=== PATIENT | male | born 1970 | race Caucasian/White ===

== ENCOUNTER 2018-12-12 18:40 | Emergency (ER) | payer OTHER ==
[2018-12-12] MEDS ORDERED: FENTANYL CITR 100 MCG/2 ML ONE (19:35)
[2018-12-12] MEDS ORDERED: NA CHLORIDE 0.9% 1,000 ML ONE (19:35)
[2018-12-12 19:56] LABS: Absolute Lymphocytes (CBC) 1.7 K/uL (0.7-4.9); Absolute Monocytes 0.5 K/uL (0.1-1.3); Absolute Neutrophil 3.4 K/uL (1.8-8.0); Basophils % 0.9 % (0-1.3); Eosinophils % 1.3 % (0-4.4); Hematocrit 45.1 % (39.6-49.0); Lymphocytes % 29.8 % (15.3-44.8); MPV 10.1 fL (7.6-11.3); Monocytes % 8.8 % (3.3-12.3); RBC Red Blood Cell Count 4.94 M/uL (4.33-5.43)
[2018-12-12 20:17] LABS: Urine Blood NEGATIVE (NEG); Urine Glucose NEGATIVE (NEG); Urine Protein NEGATIVE (NEG); Urine Specific Gravity 1.015 (1.005-1.030)
[2018-12-12 20:20] LABS: ALT/SGPT 48 U/L (12-78); AST/SGOT 23 U/L (15-37); Albumin 4.4 g/dL (3.4-5.0); Alkaline Phosphatase 82 U/L (45-117); BUN Blood Urea Nitrogen 11 mg/dL (7-18); Bicarbonate 29 mmol/L (21-32); Bilirubin Direct 0.1 mg/dL (0-0.2); Bilirubin Total 0.4 mg/dL (0.2-1.0); Glucose Level 105 mg/dL (74-106); Lipase 128 U/L (73-393); Potassium 4.4 mmol/L (3.5-5.1); Protein, Total 7.4 g/dL (6.4-8.2); Sodium Level 141 mmol/L (136-145)
--- NOTE | 2018-12-12 21:07 | RAD REPORT ---
EXAM DESCRIPTION: US - Scrotum Testicles - 12/12/2018 8:58 pm CLINICAL HISTORY: Testicular pain COMPARISON: None FINDINGS: Right testicle measures 4.5 x 2.5 x 2.9 centimeters. Echotexture is homogeneous. Normal bl ood flow Left testicle measures 4.4 x 2.3 x 2.6 centimeters. Echotexture is homogeneous. Normal blood flow The epididymides are normal in size and echotexture. Normal blood flow is seen. IMPRESSION: Unremarkable exam
[2018-12-12] MEDS ORDERED: MAGNESIUM CITRATE 300 ML BOT ONE (21:35)
--- NOTE | 2018-12-12 22:09 | ER ---
Nurse's Notes [facility] Name: Harjinder Cooper Age: 47 yrs Sex: Male : 1970 Arrival Date: 12/12/2018 Time: 18:41 Bed 18 Private MD: out of town, doctor Diagnosis: Lower abdominal pain, unspecified;Constipation Presentation: 12/12 18:45 Presenting complaint: states: intermittent sharp lower abd pain that radiates to sv groin x 1 day, chills. Denies n/v/d. Pt was recently admitted and d/c'd for viral enteritis. Had OP CTA \T\ US done, results called as cyst on appendix and small patchy areas on his lungs. BMs have been soft since. Transition of care: patient was not received from another setting of care. Onset of symptoms was December 11, 2018. Care prior to arrival: None. 18:45 Method Of Arrival: Ambulatory sv 18:45 Acuity: AYO 3 sv 19:30 Risk Assessment: Do you want to hurt yourself or someone else? Patient reports no ea desire to harm self or others. Initial Sepsis Screen: Does the patient meet any 2 criteria? No. Patient's initial sepsis screen is negative. Does the patient have a suspected source of infection? No. Patient's initial sepsis screen is negative. Historical: - Allergies: 18:55 Benadryl; sv - PMHx: 18:55 None; sv - PSHx: 18:55 None; sv - Immunization history:: Adult Immunizations up to date. - Social history:: Smoking status: Patient/guardian denies using tobacco. - Ebola Screening: : No symptoms or risks identified at this time. Screenin:30 Abuse screen: Denies threats or abuse. Nutritional screening: No deficits noted. ea Tuberculosis screening: No symptoms or risk factors identified. Fall Risk IV access (20 points). Assessment: 19:30 General: Appears uncomfortable, Behavior is calm, cooperative, appropriate for age. ea Pain: Complains of pain in abdomen and pelvis. Neuro: Level of Consciousness is awake, alert, obeys commands, Oriented to person, place, time, situation. Cardiovascular: Patient's skin is warm and dry. Respiratory: Airway is patent Respiratory effort is even, unlabored, Respiratory pattern is regular, symmetrical. GI: Bowel sounds present X 4 quads. Abd is soft X 4 quads. : No signs and/or symptoms were reported regarding the genitourinary system. Derm: Skin is pink, warm \T\ dry. 20:58 Reassessment: Patient and/or family updated on plan of care and expected duration. Pain ea level reassessed. Patient is alert, oriented x 3, equal unlabored respirations, skin warm/dry/pink. 21:55 Reassessment: Patient and/or family updated on plan of care and expected duration. Pain ea level reassessed. Patient is alert, oriented x 3, equal unlabored respirations, skin warm/dry/pink. 22:32 Reassessment: Patient and/or family updated on plan of care and expected duration. Pain ea level reassessed. Patient is alert, oriented x 3, equal unlabored respirations, skin warm/dry/pink. 23:15 Reassessment: Patient and/or family updated on plan of care and expected duration. Pain ea level reassessed. Patient is alert, oriented x 3, equal unlabored respirations, skin warm/dry/pink. Soaps suds enema complete, pt tolerated well. Pt had small solid bowel movement. 23:30 Reassessment: Patient and/or family updated on plan of care and expected duration. Pain ea level reassessed. Patient is alert, oriented x 3, equal unlabored respirations, skin warm/dry/pink. Discharge instruction given to patient, verbalized the understanding of instruction. Vital Signs: 18:55 BP 127 / 87; Pulse 66; Resp 24; Temp 97.9; Pulse Ox 100% ; Weight 94.35 kg; Height 5 sv ft. 10 in. (177.80 cm); Pain 3/10; 19:58 BP 130 / 78; Pulse 60; Resp 20; Pulse Ox 99% on R/A; ea 21:55 BP 148 / 91; Pulse 68; Resp 18; Pulse Ox 99% on R/A; ea 22:40 BP 130 / 78; Pulse 60; Resp 18; Pulse Ox 99% on R/A; ea 23:25 BP 128 / 70; Pulse 62; Resp 18; Pulse Ox 99% on R/A; ea 18:55 Body Mass Index 29.84 (94.35 kg, 177.80 cm) ED Course: 18:41 Patient arrived in ED. mr 18:41 out of town, doctor is Private Physician. mr 18:45 Adriana Howell, BERYL is [facility]. snw 18:45 Alonzo Strickland MD is Attending Physician. snw 18:55 Triage completed. sv 18:55 Arm band placed on. sv 19:15 Oral contrast given. jg6 19:20 Oral contrast reported to be complete. jg6 19:27 Initial lab(s) drawn, by me, sent to lab. Inserted saline lock: 20 gauge in right vd2 antecubital area, using aseptic technique. Blood collected. 19:30 Columba Harper, RN is Primary Nurse. ea 20:33 Ultrasound completed. Patient tolerated well. sg3 20:33 US Scrotum Testicles In Process Unspecified. sg3 20:[address] via wheelchair. jg6 21:08 CT completed. Patient tolerated procedure well. Patient moved back from CT. vm2 21:20 CT Abd/Pelvis - W/Contrast In Process Unspecified. EDMS 22:03 Patient has correct armband on for positive identification. Bed in low position. Call ea light in reach. Side rails up X2. 22:20 Attending Physician role handed off by Alonzo Strickland MD snw 22:20 Tono Gimenez MD is Attending Physician. snw 23:30 No provider procedures requiring assistance completed. IV discontinued, intact, ea bleeding controlled, No redness/swelling at site. Pressure dressing applied. Administered Medications: 19:40 Drug: fentaNYL (PF) 25 mcg Route: IVP; Site: right antecubital; ea 20:50 Follow up: Response: No adverse reaction; Pain is decreased ea 19:40 Drug: NS 0.9% 1000 ml Route: IV; Rate: 125 ml/hr; Site: right antecubital; ea 21:32 Drug: Magnesium Citrate Liquid 300 ml Route: PO; ea 22:00 Follow up: Response: No adverse reaction ea 22:08 Drug: Phenergan 6.25 mg Route: IVP; Site: right antecubital; ea 22:49 Follow up: Response: Nausea is decreased ea 23:26 Drug: Simethicone 120 mg Route: PO; ea 23:30 Follow up: Response: Medication administered at discharge. ea Outcome: 22:09 Discharge ordered by . snw 23:25 Condition: improved ea 23:25 Discharge instructions given to patient, Instructed on discharge instructions, follow up and referral plans. medication usage, Demonstrated understanding of instructions, follow-up care, medications, Prescriptions given X 2. 23:30 Discharged to home via wheelchair, with significant other. ea 23:39 Patient left the ED. ea Signatures: Dispatcher [employer] Ju Castle, Adriana Wellington RN, [employer] Claudia Castro, [facility]2 Katey Finch2 Columba Harper RN RN ea Godinez, Sarah sg3 Lorena Alicea jg6 Corrections: (The following items were deleted from the chart) 21:00 20:58 In radiology for Scrotum Testicles+US.RAD.BLAIR. MARTINSD sg3 21:00 20:59 Ultrasound completed. Patient tolerated well. sg3 sg3
--- NOTE | 2018-12-12 22:09 | EDPHYS ---
Physician Documentation [facility] Name: Harjinder Cooper Age: 47 yrs Sex: Male : 1970 Arrival Date: 12/12/2018 Time: 18:41 Bed 18 Private MD: out of town, doctor ED Physician Tono Gimenez HPI: 12/12 19:10 This 47 yrs old Male presents to ER via Ambulatory with complaints of snw Abdominal Pain. 19:10 Onset: The symptoms/episode began/occurred suddenly, 2 week(s) ago, and became snw persistent. The symptoms radiate to pelvis. Associated signs and symptoms: Pertinent positives: constipation. The symptoms are described as stabbing. Modifying factors: The symptoms are alleviated by nothing. Severity of pain: At its worst the pain was moderate. The patient has experienced a previous episode, approximately 2 weeks ago, but today's symptoms are worse. pt was admitted at [facility] with and was to f/u PCP. PCP ordered CTA and US (abdomen). Pt states he got results today of cyst on his appendix, c/o continued and worsening abd pain.. Historical: - Allergies: 18:55 Benadryl; sv - PMHx: 18:55 None; sv - PSHx: 18:55 None; sv - Immunization history:: Adult Immunizations up to date. - Social history:: Smoking status: Patient/guardian denies using tobacco. - Ebola Screening: : No symptoms or risks identified at this time. ROS: 19:20 Constitutional: Negative for fever, chills, and weight loss, Eyes: Negative for injury, snw pain, redness, and discharge, ENT: Negative for injury, pain, and discharge, Neck: Negative for injury, pain, and swelling, Cardiovascular: Negative for chest pain, palpitations, and edema, Respiratory: Negative for shortness of breath, cough, wheezing, and pleuritic chest pain, Back: Negative for injury and pain, : Negative for injury, bleeding, discharge, and swelling, MS/Extremity: Negative for injury and deformity, Skin: Negative for injury, rash, and discoloration, Neuro: Negative for headache, weakness, numbness, tingling, and seizure. 19:20 Abdomen/GI: Positive for abdominal pain, constipation. Exam: 19:20 Constitutional: This is a well developed, well nourished patient who is awake, alert, snw and in no acute distress. Head/Face: Normocephalic, atraumatic. Eyes: Pupils equal round and reactive to light, extra-ocular motions intact. Lids and lashes normal. Conjunctiva and sclera are non-icteric and not injected. Cornea within normal limits. Periorbital areas with no swelling, redness, or edema. ENT: Nares patent. No nasal discharge, no septal abnormalities noted. Tympanic membranes are normal and external auditory canals are clear. Oropharynx with no redness, swelling, or masses, exudates, or evidence of obstruction, uvula midline. Mucous membranes moist. Neck: Trachea midline, no thyromegaly or masses palpated, and no cervical lymphadenopathy. Supple, full range of motion without nuchal rigidity, or vertebral point tenderness. No Meningismus. Chest/axilla: Normal chest wall appearance and motion. Nontender with no deformity. No lesions are appreciated. Cardiovascular: Regular rate and rhythm with a normal S1 and S2. No gallops, murmurs, or rubs. Normal PMI, no JVD. No pulse deficits. Respiratory: Lungs have equal breath sounds bilaterally, clear to auscultation and percussion. No rales, rhonchi or wheezes noted. No increased work of breathing, no retractions or nasal flaring. 19:20 Back: No spinal tenderness. No costovertebral tenderness. Full range of motion. Skin: Warm, dry with normal turgor. Normal color with no rashes, no lesions, and no evidence of cellulitis. MS/ Extremity: Pulses equal, no cyanosis. Neurovascular intact. Full, normal range of motion. Neuro: Awake and alert, GCS 15, oriented to person, place, time, and situation. Cranial nerves II-XII grossly intact. Motor strength 5/5 in all extremities. Sensory grossly intact. Cerebellar exam normal. Normal gait. 19:20 Abdomen/GI: Inspection: distension, that is moderate, Bowel sounds: normal, Palpation: moderate abdominal tenderness, firm to palpation diffusely . Vital Signs: 18:55 BP 127 / 87; Pulse 66; Resp 24; Temp 97.9; Pulse Ox 100% ; Weight 94.35 kg; Height 5 sv ft. 10 in. (177.80 cm); Pain 3/10; 19:58 BP 130 / 78; Pulse 60; Resp 20; Pulse Ox 99% on R/A; ea 21:55 BP 148 / 91; Pulse 68; Resp 18; Pulse Ox 99% on R/A; ea 22:40 BP 130 / 78; Pulse 60; Resp 18; Pulse Ox 99% on R/A; ea 23:25 BP 128 / 70; Pulse 62; Resp 18; Pulse Ox 99% on R/A; ea 18:55 Body Mass Index 29.84 (94.35 kg, 177.80 cm) sv MDM: 18:51 Patient medically screened. juan 22:13 Data reviewed: vital signs, nurses notes. Data interpreted: Pulse oximetry: on room air snw is 99 %. Interpretation: normal. Counseling: I had a detailed discussion with the patient and/or guardian regarding: the historical points, exam findings, and any diagnostic results supporting the discharge/admit diagnosis, lab results, radiology results, the need for outpatient follow up, to return to the emergency department if symptoms worsen or persist or if there are any questions or concerns that arise at home. Special discussion: Based on the patient's Hx, exam, and Dx evaluation, there is no indication for emergent surgery or inpatient Tx. It is understood by the patient/guardian that if the Sx's persist or worsen they need to return immediately for re-evaluation. Based on the history and exam findings, there is no indication for further emergent testing or inpatient evaluation. I discussed with the patient/guardian the need to see the protection specialist for further evaluation of the symptoms. I discussed with the patient/guardian the need to see the primary care provider for further evaluation of the symptoms. 12/12 19:03 Order name: Urine Dipstick--Ancillary (enter results); Complete Time: 20:36 mt 12/12 19:09 Order name: Basic Metabolic Panel; Complete Time: 20:36 snw 12/12 19:09 Order name: CBC with Diff; Complete Time: 20:51 snw 12/12 19:09 Order name: Creatinine for Radiology; Complete Time: 20:13 snw 12/12 19:09 Order name: Hepatic Function; Complete Time: 20:36 snw 12/12 19:09 Order name: Lipase; Complete Time: 20:36 snw 12/12 19:09 Order name: US Scrotum Testicles; Complete Time: 21:08 snw 12/12 19:09 Order name: CT Abd/Pelvis - W/Contrast snw 12/12 19:09 Order name: Sed Rate; Complete Time: 20:51 snw 12/12 19:09 Order name: IV Saline Lock; Complete Time: 19:54 snw 12/12 19:09 Order name: Labs collected and sent; Complete Time: 19:54 snw 12/12 22:11 Order name: Misc. Order: soap suds enema; Complete Time: 23:14 snw Administered Medications: 19:40 Drug: fentaNYL (PF) 25 mcg Route: IVP; Site: right antecubital; ea 20:50 Follow up: Response: No adverse reaction; Pain is decreased ea 19:40 Drug: NS 0.9% 1000 ml Route: IV; Rate: 125 ml/hr; Site: right antecubital; ea 21:32 Drug: Magnesium Citrate Liquid 300 ml Route: PO; ea 22:00 Follow up: Response: No adverse reaction ea 22:08 Drug: Phenergan 6.25 mg Route: IVP; Site: right antecubital; ea 22:49 Follow up: Response: Nausea is decreased ea 23:26 Drug: Simethicone 120 mg Route: PO; ea 23:30 Follow up: Response: Medication administered at discharge. ea Disposition: 12/12/18 22:09 Discharged to Home. Impression: Lower abdominal pain, unspecified, Constipation. - Condition is Stable. - Discharge Instructions: Abdominal Pain, Adult, Constipation, Adult, High-Fiber Diet, Colonoscopy, Gastrointestinal Endoscopy, Adult, Care After, Rehydration, Adult. - Prescriptions for Miralax 17 gram/dose Oral - take 1 packet by ORAL route once daily dilute powder in 8 ounces of water or juice; 1 box. simethicone - take 120 milligram by ORAL route 3 times per day; 1 box. - Work release form, Medication Reconciliation Form, Thank You Letter, Antibiotic Education, Prescription Opioid Use form. - Follow up: Private Physician; When: 2 - 3 days; Reason: Recheck today's complaints, Continuance of care, Re-evaluation by your physician. Follow up: Emergency Department; When: As needed; Reason: Worsening of condition. Addendum: 12/15/2018 07:00 Co-signature as Attending Physician, Tono Gimneez MD I agree with the assessment and k dr plan of care. Signatures: Dispatcher [employer] EDMS Ju Ibrahim, RN RN Alonzo Beverly MD MD cha Rittger, Kevin, MD MD kdr Therrien, Shelly, [employer] Columba Harper, RN RN ea Corrections: (The following items were deleted from the chart) 12/12 23:39 22:09 12/12/2018 22:09 Discharged to Home. Impression: Lower abdominal pain, ea unspecified; Constipation. Condition is Stable. Forms are Medication Reconciliation Form, Thank You Letter, Antibiotic Education, Prescription Opioid Use. Follow up: Private Physician; When: 2 - 3 days; Reason: Recheck today's complaints, Continuance of care, Re-evaluation by your physician. Follow up: Emergency Department; When: As needed; Reason: Worsening of condition. snw
[2018-12-12] MEDS ORDERED: SIMETHICONE 80 MG TAB ONE (23:30)
--- NOTE | 2018-12-13 12:18 | RAD REPORT ---
EXAM DESCRIPTION: CT ABDOMEN PELVIS WITH IV CONTRAST CLINICAL HISTORY: Sharp lower abdominal pain. COMPARISON: None. TECHNIQUE: CT scan of the abdomen and pelvis with IV contrast. Oral contrast was administered. This exam was performed according to our departmental dose-optimization program, which includes automated exposure control, adjustment of the mA and/or kV according to patient size and/or use of iterative re construction technique. FINDINGS: The lung bases are clear. No pleural or pericardial effusions. There is no hiatal hernia. The liver, spleen, pancreas, gallbladder, adrenal glands, and kidneys are unremarkable. No urinary st ones are seen. The pelvic organs are also unremarkable. No small bowel obstruction. The appendix is normal. There is no evidence of diverticulitis. No intrap eritoneal free fluid or free air is identified. The aorta is normal caliber. No acute osseous findings are appreciated. There is no body wall hernia. IMPRESSION: No acute abdominal or pelvic pathology. Electronically signed by: Ac Roman MD 12/12/2018 9:28 PM CDT Due to temporary technical issues with the PACS/Fluency reporting system, reports are being signed by the in house radiologist as a courtesy to ensure prompt reporting. The interpreting radiologist is f ully responsible for the content of the report.
== END 2018-12-12 23:39 | disposition home or self-care (01) ==
LOC: ER 18:40
DX: K59.00 Constipation, unspecified (principal); Z88.8 Allergy status to other drugs, medicaments and biological substances
CPT/HCPCS: 36415; 74177; 76870; 80048; 80076; 81003; 83690; 85025; 85652; 96374; 96375; 99284; J3010; J7030; Q9967

== ENCOUNTER 2025-02-17 21:56 | Emergency (ER) | payer OTHER ==
--- NOTE | 2025-02-17 22:54 | RAD REPORT ---
EXAMINATION: Forearm Left VIEWS: Three views CLINICAL INDICATION: Male, 54 years old. PAIN COMPARISON: No prior exam. IMPRESSION: Nondisplaced fracture involving the radial styloid with intra-articular extension. No malalignment. No significant focal degenerative changes.
--- NOTE | 2025-02-17 23:06 | EDPHYS ---
Physician Documentation [facility] Name: Harjinder Cooper Age: 54 yrs Sex: Male : 1970 Arrival Date: 02/17/2025 Time: 21:56 Bed 11 Private MD: ED Physician Mo Stevens HPI: 02/17 22:02 This 54 yrs old Male presents to ER via Unassigned with complaints of Wrist Injury. rn 22:02 The patient or guardian reports decreased range of motion, injury, pain. The complaints rn affect the left wrist diffusely. Onset: The symptoms/episode began/occurred just prior to arrival. The patient has not experienced similar symptoms in the past. Pt reports fall from standing while at work. Isolated injury to left wrist and forearm. Denies injury or pain to head/neck/back/pelvis. Denies injury to any other extremity.. Historical: - Allergies: 22:08 Benadryl; br2 - PMHx: 22:08 None; br2 - PSHx: 22:08 None; br2 - Immunization history:: Adult Immunizations up to date. - Infectious Disease History:: Denies. - Family history:: not pertinent. - Social history:: Smoking status: Patient reports the use of cigarette tobacco products, smokes one-half pack cigarettes per day, Patient uses alcohol, occasionally. Patient/guardian denies using street drugs. - Hospitalizations: : No recent hospitalization is reported. ROS: 22:02 Constitutional: Negative for fever, chills, and weight loss, Neck: Negative for injury, rn pain, and swelling, Cardiovascular: Negative for chest pain, palpitations, and edema, Respiratory: Negative for shortness of breath, cough, wheezing, and pleuritic chest pain, Abdomen/GI: Negative for abdominal pain, nausea, vomiting, diarrhea, and constipation, Back: Negative for injury and pain, MS/Extremity: Positive for injury and pain to left wrist and forearm Skin: Negative for injury, rash, and discoloration, Neuro: Negative for headache, weakness, numbness, tingling, and seizure, Exam: 22:02 Constitutional: This is a well developed, well nourished patient who is awake, alert, rn and in no acute distress. Ambulatory to room without assistance. Head/Face: Normocephalic, atraumatic. Neck: No midline cervical tenderness Chest/axilla: No rib tenderness or crepitus Cardiovascular: Regular rate and rhythm. No pulse deficits. Respiratory: No increased work of breathing, no retractions or nasal flaring. Back: No spinal tenderness. No costovertebral tenderness. Full range of motion. Skin: No open wounds at areas of pain. No cyanosis MS/ Extremity: Pulses equal, no cyanosis. Neurovascular intact. Tenderness left distal wrist on radial side and mid/proximal forearm. No pain proximal to or involving left elbow. Neuro: Awake and alert, GCS 15, oriented to person, place, time, and situation. Cranial nerves II-XII grossly intact. Motor strength 5/5 in all extremities. Sensory grossly intact. Cerebellar exam normal. Normal gait. Vital Signs: 22:06 BP 115 / 87; Pulse 66; Resp 18; Temp 97.4; Pulse Ox 99% ; Weight 88.45 kg; Height 5 ft. br2 11 in. ; Pain 7/10; 22:06 Body Mass Index 27.20 (88.45 kg, 180.34 cm) br2 22:06 Pain Scale: Adult br2 MDM: 21:59 Medical Screening Exam initiated rn 23:04 Differential diagnosis: closed fracture, contusion. Data reviewed: vital signs, nurses rn notes, radiologic studies, plain films, and as a result, I will discharge patient. Independent interpretation of the following test(s) in the Emergency Department X-Ray: My interpretation is X-ray left wrist images show nondisplaced distal radial intra-articular fracture per my interpretation.. Counseling: I had a detailed discussion with the patient and/or guardian regarding the historical points, exam findings, and any diagnostic results supporting the discharge/admit diagnosis, radiology results, the need for outpatient follow up, to return to the emergency department if symptoms worsen or persist or if there are any questions or concerns that arise at home. Special discussion: I discussed with the patient/guardian in detail that at this point there is no indication for admission to the hospital. It is understood, however, that if the symptoms persist or worsen the patient needs to return immediately for re-evaluation. Based on the history and exam findings, there is no indication for further emergent testing or inpatient evaluation. I discussed with the patient/guardian the need to see the orthopedic surgeon for further evaluation of the symptoms. 05/21 22:02 Order name: XRAY Forearm LEFT; Complete Time: 23:02 rn 02/17 22:52 Order name: Splint - Sugar Tong - Forearm; Complete Time: 23:44 rn Administered Medications: 23:44 Drug: Ibuprofen PO 600 mg PO once Route: PO; br2 23:52 Follow up: Response: Medication administered at discharge. br2 23:44 Drug: Acetaminophen PO 500 mg PO once Route: PO; br2 23:51 Follow up: Response: Medication administered at discharge. br2 Disposition Summary: 02/17/25 23:06 Discharge Ordered Notes: Location: Home rn Problem: new rn Symptoms: have improved rn Condition: Stable rn Diagnosis - Non-displaced left distal radius fracture, closed, intraarticular rn Followup: rn - With: Private Physician - When: As needed - Reason: Recheck today's complaints, Re-evaluation by your physician Discharge Instructions: - Discharge Summary Sheet rn - Cast or Splint Care, Adult rn - Wrist Fracture Treated With Immobilization rn - Form - Excuse from Work, School, or Physical Activity br2 Forms: - Medication Reconciliation Form rn - Antibiotic rn transition - Prescription Opioid Use rn - Patient Portal Instructions rn - Leadership Thank You Letter rn Signatures: Dispatcher [employer] Mo Hernández MD MD rn Riddle, Belinda, RN RN br2 Corrections: (The following items were deleted from the chart) 22:51 22:02 Wrist Left 3 View+RAD.RAD.BRZ ordered. EDSD EDMS
--- NOTE | 2025-02-17 23:06 | ER ---
Nurse's Notes [facility] Ravi Name: Harjinder Cooper Age: 54 yrs Sex: Male : 1970 Arrival Date: 02/17/2025 Time: 21:56 Bed 11 Private MD: Diagnosis: Non-displaced left distal radius fracture, closed, intraarticular Presentation: 02/17 22:06 Chief complaint: Patient states: S/P FALL AT WORK [place]. PT ATTEMPTED TO CATCH HIMSELF br2 WITH LEFT HAND...C/O PAIN TO LEFT WRIST. Coronavirus screen: Client denies travel out of the [place] in the last 14 days. Ebola Screen: Patient denies exposure to infectious person. Initial Sepsis Screen: Does the patient meet any 2 criteria? No. Patient's initial sepsis screen is negative. Does the patient have a suspected source of infection? No. Patient's initial sepsis screen is negative. Risk Assessment: Do you want to hurt yourself or someone else? Patient reports no desire to harm self or others. Onset of symptoms. 22:06 Method Of Arrival: Ambulatory br2 22:06 Acuity: AYO 4 br2 Triage Assessment: 22:08 General: Appears uncomfortable, Behavior is calm, cooperative. Pain: Complains of pain br2 in left wrist. Musculoskeletal: Range of motion: limited in left wrist. Injury Description: FALL. Historical: - Allergies: 22:08 Benadryl; br2 - PMHx: 22:08 None; br2 - PSHx: 22:08 None; br2 - Immunization history:: Adult Immunizations up to date. - Infectious Disease History:: Denies. - Family history:: not pertinent. - Social history:: Smoking status: Patient reports the use of cigarette tobacco products, smokes one-half pack cigarettes per day, Patient uses alcohol, occasionally. Patient/guardian denies using street drugs. - Hospitalizations: : No recent hospitalization is reported. Screenin:06 [facility] ED Fall Risk Assessment (Adult) History of falling in the last 3 months, br2 including since admission Yes- single mechanical fall (1 pt) Confusion or Disorientation No (0 pts) Intoxicated or Sedated No (0 pts) Impaired Gait No (0 pts) Mobility Assist Device Used No (0 pt) Altered Elimination No (0 pt) Score/Fall Risk Level 0 - 2 = Low Risk Oriented to surroundings. Abuse screen: Denies threats or abuse. Denies injuries from another. Nutritional screening: No deficits noted. Tuberculosis screening: No symptoms or risk factors identified. Assessment: 22:06 Reassessment: see triage assessment. br2 Vital Signs: 22:06 BP 115 / 87; Pulse 66; Resp 18; Temp 97.4; Pulse Ox 99% ; Weight 88.45 kg; Height 5 ft. br2 11 in. ; Pain 7/10; 22:06 Body Mass Index 27.20 (88.45 kg, 180.34 cm) br2 22:06 Pain Scale: Adult br2 ED Course: 21:59 Patient arrived in ED. im 21:59 Mo Stevens MD is Attending Physician. rn 22:06 Patient has correct armband on for positive identification. Bed in low position. Call br2 light in reach. Side rails up X 1. Provided Education on: PLAN OF CARE. 22:08 Triage completed. br2 22:51 XRAY Forearm LEFT In Process Unspecified. EDMS 23:24 Radha Chaidez RN is Primary Nurse. br2 23:30 Orthoglass splint: Sugar tong splint applied on left arm. Sling applied to left arm. br2 23:33 Assist provider with fracture care Immobilized with preformed splint. br2 23:51 Patient did not have IV access during this emergency room visit. br2 Administered Medications: 23:44 Drug: Ibuprofen PO 600 mg PO once Route: PO; br2 23:52 Follow up: Response: Medication administered at discharge. br2 23:44 Drug: Acetaminophen PO 500 mg PO once Route: PO; br2 23:51 Follow up: Response: Medication administered at discharge. br2 Outcome: 23:06 Discharge ordered by . rn 23:33 Discharged to home ambulatory, br2 23:33 Condition: stable 23:33 Discharge instructions given to patient, Instructed on discharge instructions, follow up and referral plans. Demonstrated understanding of instructions, follow-up care, 23:52 Patient left the ED. br2 Signatures: Dispatcher [employer] EDMS Mo Stevens MD MD rn Mendoza, Itzel Radha Chaidez RN RN br2
[2025-02-17] MEDS ORDERED: ACETAMINOPHEN 500 MG TAB ONE (23:25)
[2025-02-17] MEDS ORDERED: IBUPROFEN 200 MG TAB PO ONE (23:25)
[2025-02-17] MEDS ORDERED: IBUPROFEN 400 MG TAB ONE (23:26)
[2025-02-18 00:29] VITALS: BP 115/87; TEMP 97.4; O2SAT 99
== END 2025-02-17 23:52 | disposition home or self-care (01) ==
LOC: ER 21:56
PROC: 2W3DX1Z Immobilization of Left Lower Arm using Splint (ICD-10-PCS; principal; 2025-02-17)
DX: S52.572A Other intraarticular fracture of lower end of left radius, initial encounter for closed fracture (principal); F17.210 Nicotine dependence, cigarettes, uncomplicated; W18.30XA Fall on same level, unspecified, initial encounter; Y99.0 Civilian activity done for income or pay